=== PATIENT | male | born 1980 | race Two or more races ===

== ENCOUNTER 2017-02-06 16:16 | Inpatient (IN) | payer BC ==
[~2017-02-06] VITALS: Ht 180.3 cm; Wt 90.7 kg
[~2017-02-06 16:16] MED LIST: PROT40 PO
[2017-02-06] MEDS ORDERED: MORPHINE SULFATE 4 MG/ML CPJ (NOT FOR IM USE) IV STA (16:40)
[2017-02-06] MEDS ORDERED: SODIUM CHLORIDE 0.9% 1,000 ML IV ONE (16:40)
[2017-02-06] MEDS ORDERED: ONDANSETRON HCL 4MG/2ML VIAL IV STA (16:40)
[2017-02-06 17:14] LABS: BASOPHILS % 0.3 % (0.0-2.0); EOSINOPHILS % 0.8 % (0.0-5.0); HEMATOCRIT. 24.4 % (42.0-52.0); HEMOGLOBIN. 7.8 g/dL (14.0-18.0); LYMPHOCYTES % 22.7 % (20.0-50.0); MEAN CORPUSCULAR HEMOGLOBIN 22.2 pg (28.0-32.0); MEAN CORPUSCULAR VOLUME 69.8 fL (80.0-94.0); MEAN PLATELET VOLUME 8.9 fl (7.4-10.4); MONOCYTES % 12.4 % (2.0-8.0); NEUTROPHILS % 63.8 % (40.0-76.0); PLATELET 225 x1000/uL (130-400); RED CELL DISTRIBUTION WIDTH 26.4 % (11.6-14.6)
[2017-02-06 17:22] LABS: PARTIAL THROMBOPLASTIN TIME 23.1 sec (24.0-34.0); PROTHROMBIN TIME 10.4 sec
[2017-02-06 17:30] LABS: CARBON DIOXIDE 30 mEq/L (21-32); CHLORIDE 104 mEq/L (98-107); TROPONIN I < 0.02 ng/mL (0.00-0.04)
[2017-02-06 17:32] LABS: PLATELET ESTIMATE NORMAL
[2017-02-07] VITALS (7 sets, daily range): BP systolic 125–142; BP diastolic 79–97
[2017-02-07] MEDS ORDERED: ONDANSETRON HCL 4MG/2ML VIAL IV PRN (10:00)
[2017-02-07] MEDS ORDERED: TRAMADOL 50MG TABLET PO PRN (10:00)
[2017-02-07 15:33] LABS: HEMATOCRIT 29.7 % (42.0-52.0); HEMOGLOBIN 9.7 g/dL (14.0-18.0)
== END 2017-02-07 16:40 | disposition home or self-care (01) | DRG 375 ==
LOC: ER 16:48 → 6EST 20:19 → ENRESERV 02-07 06:03
PROVIDERS: ADMIT Internal Medicine; ATTEND Internal Medicine
PROC: 30233N1 Transfusion of Nonautologous Red Blood Cells into Peripheral Vein, Percutaneous Approach (ICD-10-PCS; principal; 2017-02-07)
DX: C16.9 Malignant neoplasm of stomach, unspecified (principal); D62 Acute posthemorrhagic anemia; Z88.0 Allergy status to penicillin; Z79.899 Other long term (current) drug therapy
CPT/HCPCS: 36415; 71010; 71275; 74177; 80053; 83690; 84484; 85014; 85018; 85025; 85610; 85730; 86850; 86900; 86920; 93005; 96360; 99285; J7030; J7040; P9016

== ENCOUNTER 2023-04-22 19:40 | Inpatient (IN) | payer BC, MEDICARE, OTHER ==
[~2023-04-22] VITALS: Ht 180.3 cm; Wt 87.7 kg
[2023-04-22] MEDS ORDERED: ACETAMINOPHEN 325MG TABLET PO STA (19:50)
[2023-04-22] MEDS ORDERED: IBUPROFEN 600MG TABLET PO STA (19:50)
[2023-04-22 21:03] LABS: BASOPHILS % 0.2 % (0.0-2.0); EOSINOPHILS % 0.6 % (0.0-5.0); HEMATOCRIT. 38.5 % (42.0-52.0); HEMOGLOBIN. 12.5 g/dL (14.0-18.0); LYMPHOCYTES % 8.1 % (20.0-50.0); MEAN CORPUSCULAR HEMOGLOBIN 26.8 pg (28.0-32.0); MEAN CORPUSCULAR HGB CONC 32.4 g/dL (31.0-37.0); MEAN CORPUSCULAR VOLUME 82.9 fL (80.0-94.0); MEAN PLATELET VOLUME 8.6 fl (7.4-10.4); MONOCYTES % 10.4 % (2.0-8.0); NEUTROPHILS % 80.7 % (40.0-76.0); PLATELET 187 x1000/uL (130-400); RED BLOOD CELL COUNT 4.64 mill/uL (4.7-6.1); RED CELL DISTRIBUTION WIDTH 15.2 % (11.6-14.6); WHITE BLOOD COUNT 7.9 x1000/uL (4.5-11.0)
[2023-04-22 21:08] LABS: CHLORIDE 104 mEq/L (98-107); INDEX HEMOLYSI 2 (1-3); INDEX ICTERIC 1 (1-4); INDEX LIPEMIC 1 (1-3); POTASSIUM 4.4 mEq/L (3.5-5.1); SODIUM 135 mEq/L (136-145)
[2023-04-22 21:19] LABS: ALANINE AMINOTRANSFERASE 28 IU/L (13-61); ALBUMIN 3.6 g/dL (3.4-5.0); ASPARTATE AMINOTRANSFERASE 21 IU/L (15-37); BILIRUBIN TOTAL 0.9 mg/dL (0.1-1.0); CALCIUM 8.6 mg/dL (8.5-10.1); CARBON DIOXIDE 28 mEq/L (21-32); CREATININE 0.9 mg/dL (0.6-1.3); GLUCOSE 133 mg/dL (70-105); NT PRO B-TYPE NATRIURETIC PEP 43 pg/mL (5-125); PROTEIN TOTAL 7.3 g/dL (6.0-8.3); TROPONIN I HIGH SENSITIVITY 8 ng/L (<78); UREA NITROGEN BLOOD 10 mg/dL (7-21)
[2023-04-22 21:40] LABS: D-DIMER 0.25 mg/L FEU (<0.50); PROTHROMBIN TIME 10.4 sec (9.6-11.0)
[2023-04-22 22:15] LABS: CLARITY URINE CLEAR (CLEAR); COLOR URINE YELLOW (YELLOW); GLUCOSE URINE NEGATIVE (NEGATIVE); KETONES URINE TRACE (NEGATIVE); LEUKOCYTE ESTERASE URINE NEGATIVE (NEGATIVE); NITRITE URINE NEGATIVE (NEGATIVE); OCCULT BLOOD URINE NEGATIVE (NEGATIVE); PH URINE 7.5 (4.5-8.0); PROTEIN URINE NEGATIVE (NEGATIVE); SPECIFIC GRAVITY URINE 1.011 (1.005-1.030); UROBILINOGEN URINE 0.2 E.U./dL (0.2-1.0)
[2023-04-22 23:25] LABS: TROPONIN I HIGH SENSITIVITY 10 ng/L (<78)
[2023-04-23] MEDS ORDERED: AZITHROMYCIN 500 MG TABLET PO ONE (01:30)
[2023-04-23] MEDS ORDERED: CEFTRIAXONE 1GM PREMIX 50 ML IV ONE (01:30)
[2023-04-23 01:42] LABS: TROPONIN I HIGH SENSITIVITY 12 ng/L (<78)
[2023-04-23] MEDS ORDERED: IOHEXOL-350 100 ML BOTTLE ONE (01:46)
[2023-04-23] MEDS ORDERED: AZITHROMYCIN 500 MG TABLET PO NR (06:30)
[2023-04-23 06:48] VITALS: BP 136/93; PULSE 99; RESP 21; TEMP 99.1
[2023-04-23 07:05] VITALS: BP 136/93; PULSE 81; RESP 21; TEMP 99.1
[2023-04-23 08:00] VITALS: BP 115/79; PULSE 75; RESP 16; TEMP 99
[2023-04-23] MEDS ORDERED: MAGNESIUM/ALUMINUM HYDROXIDE/SIMETHICONE 30ML UDC PO NR (11:00)
[2023-04-23] MEDS ORDERED: SUCRALFATE 1 G/10 ML UDC PO SCH (11:50)
[2023-04-23] MEDS ORDERED: VISCOUS LIDOCAINE 2% 15 ML UDC PO SCH (12:00)
[2023-04-23] MEDS ORDERED: ACETAMINOPHEN 325MG TABLET PO PRN ×2 (12:30)
[2023-04-23] MEDS ORDERED: ONDANSETRON HCL 4MG/2ML INJ IV PRN (12:30)
[2023-04-23 13:02] VITALS: BP 121/82; PULSE 74; TEMP 99; O2SAT 99
[2023-04-23] MEDS ORDERED: SODIUM CHLORIDE 0.9% INJ 3ML FLUSH IVF SCH (14:00)
== END 2023-04-23 13:36 | disposition home or self-care (01) | DRG 313 ==
LOC: ER 19:40 → EDBEDREQ 04-23 04:35 → EDBEDREQTM 04-23 04:35 → MICUSO 04-23 04:40 → 3WST 04-23 05:58
PROVIDERS: ADMIT Internal Medicine; ATTEND Internal Medicine
DX: R07.89 Other chest pain (principal); K21.9 Gastro-esophageal reflux disease without esophagitis; Z88.0 Allergy status to penicillin; Z85.01 Personal history of malignant neoplasm of esophagus; Z85.028 Personal history of other malignant neoplasm of stomach; Z92.21 Personal history of antineoplastic chemotherapy
CPT/HCPCS: 36415; 71045; 71275; 80053; 81003; 83605; 83880; 84145; 84484; 85025; 85379; 93005; 99285; Q9967